=== PATIENT | female | born 1990 | race African-American/Black ===

== ENCOUNTER 2017-01-11 13:20 | Emergency (ER) | payer OTHER ==
[~2017-01-11] VITALS: Ht 152.4 cm; Wt 79.9 kg
[~2017-01-11 13:20] MED LIST: ALDACTONE25 MG PO; ATIVAN0.5 MG PO; DICLEGIS DR 101 EACH PO; LEVOTHYROXINE137 MCG PO; Levothroid,Synthroid PO; NOHOMEMEDS; SYNTHROID50 MCG PO; TUMS500 MG PO; Vicodin,Norco 5/325 PO
[2017-01-11 14:40] LABS: MCH 26.1 PG (29.0-34.0); MCV 86.9 FL (83-99); PLATELET COUNT 247 K/uL (156-360); RBC DIS.WIDTH-CV 16.5 % (11.8-14.6); RBC DIS.WIDTH-SD 53.1 % (39-53); RED BLOOD COUNT 4.26 M/uL (3.80-5.20); WHITE BLOOD COUNT 4.8 K/uL (4.1-10.2)
[2017-01-11 14:48] LABS: CHLORIDE 106 mEq/L (99-109); POTASSIUM 4.1 mEq/L (3.7-5.4); SODIUM 139 mEq/L (136-147)
[2017-01-11 14:50] LABS: GLUCOSE 92 mg/dL (70-99)
[2017-01-11 14:51] LABS: ANION GAP 8 MEQ/L (2-14)
[2017-01-11 14:53] LABS: ALKALINE PHOSPHATASE 63 IU/L (3-129)
[2017-01-11 14:54] LABS: GFR ESTIMATE (CALCULATED) > 59 mL/min/
[2017-01-11 14:55] LABS: UREA NITROGEN (BUN) 10 mg/dL (9-23)
[2017-01-11 15:04] LABS: QUANTITATIVE HCG < 4.0 MIU/ML
[2017-01-11 16:26] LABS: LIPASE 10 U/L (1.0-51.0)
[2017-01-11 17:17] LABS: ADD MIUA? YES; BILIRUBIN NEGATIVE; BLOOD NEGATIVE; COLOR YELLOW ((YELLOW)); GLUCOSE (STRIP) NEGATIVE; KETONES 20; LEUKOCYTES TRACE; NITRITE NEGATIVE; PROTEIN (STRIP) 30; SPECIFIC GRAVITY 1.032 (1.000-1.030); UROBILINOGEN 0.2 MG/DL (0.2-1.0)
[2017-01-11 17:40] LABS: BACTERIA NONE SEEN /HPF; EPITHELIAL CELLS 3+ /HPF; RED BLOOD CELLS 0-5 /HPF (0-5)
[2017-01-11 17:41] LABS: MUCUS TRACE /LPF; UCUL ADDED? NO
[2017-01-11] MEDS ORDERED: BENTYL20 MG PO (17:52)
[2017-01-11] MEDS ORDERED: ZOFRAN ODT4 MG PO (17:52)
[2017-01-11 18:30] VITALS: BP 126/70
== END 2017-01-11 18:32 | disposition home or self-care (01) ==
LOC: EME 13:20
DX: R10.9 Unspecified abdominal pain (principal); R11.2 Nausea with vomiting, unspecified; E86.0 Dehydration
CPT/HCPCS: 80053; 81003; 83690; 84702; 85027; 99281; 99283; J0500